=== PATIENT | male | born 1955 | race Caucasian/White ===

== ENCOUNTER 2021-08-16 04:31 | Day surgery (SDC) | payer OTHER ==
[2021-08-15 13:34] VITALS: BMI 24.4
[2021-08-16] MEDS ORDERED: LIDOCAINE 1% P/F 10 MG/ML VIAL INF ONE ×2 (11:25)
[2021-08-16 17:05] VITALS: BP 102/66; PULSE 81; TEMP 98.5
== END 2021-08-16 12:30 | disposition home or self-care (01) ==
LOC: JASU-SURG 04:31
PROVIDERS: ATTEND Pain Medicine Pain Medicine
PROC: 01HY3MZ Insertion of Neurostimulator Lead into Peripheral Nerve, Percutaneous Approach (ICD-10-PCS; principal; 2021-08-16 10:30)
DX: G89.4 Chronic pain syndrome (principal); M79.661 Pain in right lower leg
CPT/HCPCS: 64555; C1778

== ENCOUNTER 2021-11-25 05:23 | Day surgery (SDC) | payer OTHER ==
[2021-11-24 12:01] VITALS: BMI 24.4
[2021-11-25] MEDS ORDERED: LIDOCAINE HCL/PF 1% SDV 5ML VIAL ONE (07:10)
[2021-11-25 07:40] VITALS: RESP 20
[2021-11-25] MEDS ORDERED: LIDOCAINE HCL 1% PRESERVATIVE FREE - 30ML VIAL IJ ONE ×6 (10:50→12:20)
[2021-11-25] MEDS ORDERED: BUPIVACAINE HCL/PF 0.25% (2.5MG/ML) 10 ML VIAL IJ ONE ×3 (10:51→12:20)
[2021-11-25 13:56] VITALS: BP 138/75; PULSE 79; TEMP 97.2
== END 2021-11-25 13:55 | disposition home or self-care (01) ==
LOC: JASU-SURG 05:23
PROVIDERS: ATTEND Pain Medicine Pain Medicine
PROC: 01HY3MZ Insertion of Neurostimulator Lead into Peripheral Nerve, Percutaneous Approach (ICD-10-PCS; principal; 2021-11-25 09:30)
DX: G89.4 Chronic pain syndrome (principal); M54.31 Sciatica, right side
CPT/HCPCS: 64555; C1897